=== PATIENT | male | born 1985 | race Caucasian/White ===

== ENCOUNTER 2021-06-12 07:21 | Emergency (ER) | payer BC ==
[~2021-06-12] VITALS: Ht 188 cm; Wt 104.3 kg
[2021-06-12 07:21] VITALS: BP_SYST 134
--- NOTE | 2021-06-12 07:21 | NUR ---
BROUGHT BACK TO BED #8 AND TRIAGED. REPORT GIVEN TO DEEP
--- NOTE | 2021-06-12 07:25 | NUR ---
ER DR. OGDEN AT THE BEDSIDE EXAMINING PT
--- NOTE | 2021-06-12 07:31 | NUR ---
PT CAME INTO ER C/O NEEDLE STUCK IN HIS LEFT INNER ELBOW. PT STATES HE WAS INJECTING HIMSELF WHEN THE NEEDLE OF THE SYRINGE BROKE OFF. PT HAS A TOURNIQUET IN PLACE UPON ARRIVAL. NO NEEDLE VISIBLE. NO BLEEDING. PT IS AMBULATORY, AAOX4, V/S STABLE
--- NOTE | 2021-06-12 07:40 | NUR ---
PORTABLE X-RAY AT THE BEDSIDE
--- NOTE | 2021-06-12 08:37 | NUR ---
Patient transported to radiology via AMBULATION, accompanied by STAFF.
--- NOTE | 2021-06-12 08:46 | NUR ---
Returned from radiology, back to [facility].
--- NOTE | 2021-06-12 09:00 | NUR ---
PT PACING IN ROOM, RESTLESS, DENIES PAIN.
[2021-06-12] MEDS ORDERED: CLIN300C12 PO (09:20)
[2021-06-12 09:27] VITALS: BP_SYST 134
--- NOTE | 2021-06-12 09:28 | NUR ---
Patient given written and verbal discharge instructions and verbalizes understanding. ER MD discussed with patient the results and treatment provided. Patient in stable condition. ID arm band removed. Rx of CLINDAMYCIN given. Patient educated on pain management and to follow up with PMD. Pain Scale 0/10. Opportunity for questions provided and answered. Medication side effect fact sheet provided.
== END 2021-06-12 09:28 | disposition home or self-care (01) ==
LOC: SED 07:21
DX: S51.042A Puncture wound with foreign body of left elbow, initial encounter (principal); W46.0XXA Contact with hypodermic needle, initial encounter; Y93.89 Activity, other specified; Y92.89 Other specified places as the place of occurrence of the external cause; Y99.8 Other external cause status
CPT/HCPCS: 71045; 73060-TC; 73090; 73200-TC; 76376; 99284